=== PATIENT | male | born 1955 | race Caucasian/White ===

== ENCOUNTER 2017-12-05 08:08 | Emergency (ER) | payer BC, OTHER ==
[2017-12-05 08:29] VITALS: BP 149/93
--- NOTE | 2017-12-05 08:35 | UC ---
Lower Extremity/Ankle HPI - HPI Summary HPI Summary: RIGHT THIGH PAIN X 2 HRS AGO S/P FELL ON ICE THIS MORNING AT WORK INJURY TO HIS RIGHT THIGH - History of Current Complaint Chief Complaint: UCLowerExtremity Stated Complaint: RIGHT LEG INJURY WC Time Seen by Provider: 12/05/17 08:28 Hx Obtained From: Patient Onset/Duration: Sudden Onset, Lasting Hours - 2, Still Present Severity Initially: Moderate Severity Currently: Moderate Pain Intensity: 5 Aggravating Factor(s): Standing, Ambulation Alleviating Factor(s): Rest, Ice Able to Bear Weight: Yes - Allergies/Home Medications Allergies/Adverse Reactions: Allergies Allergy/AdvReac Type Severity Reaction Status Date / Time No Known Allergies Allergy Verified 12/05/17 08:29 Home Medications: Home Medications Acetaminophen TAB* [Tylenol TAB*] 650 mg PO Q4H PRN 12/05/17 [History Confirmed 12/05/17] Losartan TAB* [Cozaar TAB*] 25 mg PO DAILY 12/05/17 [History Confirmed 12/05/17] Melatonin 10 mg PO BEDTIME 12/05/17 [History Confirmed 12/05/17] Methimazole TAB* [Tapazole TAB*] 5 mg PO BID 12/05/17 [History Confirmed ] Tadalafil (Nf) [Cialis (NF)] 5 mg PO DAILY 12/05/17 [History Confirmed 12/05/17] amLODIPine TAB* [Norvasc 5 mg TAB*] 5 mg PO DAILY 12/05/17 [History Confirmed ] PMH/Surg Hx/FS Hx/Imm Hx Endocrine History: Hyperthyroidism Cardiovascular History: Hypertension Cancer History: Other - MELENOMA Other Cancer History: MELENOMA - Surgical History Surgical History: Yes Surgery Procedure, Year, and Place: Tonsillectomy, ~1963 - Family History Known Family History: Negative: Diabetes - Social History Alcohol Use: Weekly Substance Use Type: Marijuana Substance Use Comment - Amount & Last Used: less than weekly Smoking Status (MU): Current Some Day Smoker Type: Cigars Review of Systems Constitutional: Negative Skin: Negative Eyes: Negative ENT: Negative Respiratory: Negative Musculoskeletal: Other: - RIGHT THIGH PAIN Is Patient Immunocompromised?: No All Other Systems Reviewed And Are Negative: Yes Physical Exam Triage Information Reviewed: Yes Appearance: Well-Appearing, No Pain Distress, Well-Nourished Vital Signs: Initial Vital Signs Temp 97.7 F 12/05/17 08:27 Pulse 66 12/05/17 08:27 Resp 16 12/05/17 08:27 BP 149/93 12/05/17 08:27 Pulse Ox 98 12/05/17 08:27 Vital Signs Reviewed: Yes Eyes: Positive: Conjunctiva Clear ENT: Positive: Normal ENT inspection, Hearing grossly normal, Pharynx normal Neck: Positive: Supple, Nontender, No Lymphadenopathy Respiratory: Positive: Chest non-tender, Lungs clear, Normal breath sounds Cardiovascular: Positive: RRR, No Murmur, Pulses Normal Musculoskeletal: Positive: Other: - RIGHT THIGH: NO SWELLING, NO ECCHYMOSIS, + TENDERNESS RIGHT QUADS , MORMAL STRENGTH Lower Extremity Course/Dx - Differential Dx/Diagnosis Provider Diagnoses: STRAIN RIGHT THIGH Discharge - Discharge Plan Condition: Stable Disposition: HOME Patient Education Materials: Muscle Strain (ED) Referrals: Curtis Donohue DO [Primary Care Provider] - 7 Days
== END 2017-12-05 08:39 | disposition home or self-care (01) ==
LOC: UCCORT 08:08
DX: S76.911A Strain of unspecified muscles, fascia and tendons at thigh level, right thigh, initial encounter (principal); E05.90 Thyrotoxicosis, unspecified without thyrotoxic crisis or storm; I10 Essential (primary) hypertension; C43.9 Malignant melanoma of skin, unspecified; F17.290 Nicotine dependence, other tobacco product, uncomplicated; W00.0XXA Fall on same level due to ice and snow, initial encounter; Y92.89 Other specified places as the place of occurrence of the external cause
CPT/HCPCS: 99212; G0463